=== PATIENT | female | born 1990 | race Caucasian/White ===

== ENCOUNTER 2018-01-22 13:56 | Emergency (ER) | payer SELFPAY ==
[2018-01-22 14:30] VITALS: BP 142/100; TEMP 97.9; O2SAT 98
[2018-01-22] MEDS: FLUCONAZOLE 100 MG TAB PO ONE (14:49)
--- NOTE | 2018-01-22 14:49 | ED.PDOC ---
History of Present Illness - General Chief Complaint: ENT Problem Stated Complaint: sore throat Time Seen by Provider: 01/22/18 14:15 Source: patient Exam Limitations: no limitations - History of Present Illness Initial Comments: the patient is a 27-year-old female presenting to the emergency room secondary to symptoms of pharyngitis that it been present for the last 2 weeks. No fevers. No runny nose. The patient is morbidly obese and likely does have sleep apnea which may be contributing. She does not think she has significant heartburn issues. She is not sexually active. No other significant symptoms.no history of diabetes. No history of any thyroid problems. Timing/Duration: 1 week, constant Severity: moderate Improving Factors: nothing Worsening Factors: nothing Associated Symptoms: denies symptoms Allergies/Adverse Reactions: Allergies NO KNOWN ALLERGY Allergy (Unverified 05/07/14 05:00) Home Medications: Ambulatory Orders Acetaminophen W/ Codeine [Tylenol W/ CODEINE #3] 1 ea PO Q6-8H PRN #15 Azithromycin Tab [Zithromax Tab] 250 mg PO QDAC #4 tab 05/07/14 Ciprofloxacin [Cipro] 500 mg PO BID #20 tab 10/12/14 Famotidine 20 mg PO DAILY #30 tab 01/22/18 Review of Systems - Review of Systems Constitutional: States: malaise EENTM: States: nose congestion - mild, throat pain Respiratory: States: no symptoms reported Cardiology: States: no symptoms reported Gastrointestinal/Abdominal: States: no symptoms reported Genitourinary: States: no symptoms reported Musculoskeletal: States: no symptoms reported Skin: States: no symptoms reported Neurological: States: no symptoms reported Endocrine: States: no symptoms reported All other Systems: No Change from Baseline Past Medical History (General) - Patient Medical History Hx Seizures: No Hx Stroke: No Hx Dementia: No Hx Asthma: No Hx of COPD: No Hx Cardiac Disorders: No Hx Congestive Heart Failure: No Hx Pacemaker: No Hx Hypertension: No Hx Thyroid Disease: No Hx Diabetes: No Hx Gastroesophageal Reflux: No Hx Renal Disease: No Hx Cancer: No Hx of HIV: No Hx Hepatitis C: Yes Hx MRSA: No Surgical History: other - Vaccination History Hx Tetanus, Diphtheria Vaccination: No Hx Influenza Vaccination: No Hx Pneumococcal Vaccination: No - Social History Hx Tobacco Use: Yes Hx Chewing Tobacco Use: No Hx Alcohol Use: No Hx Substance Use: No Hx Substance Use Treatment: No Hx Depression: No Hx Physical Abuse: No Hx Emotional Abuse: No Hx Suspected Abuse: No - Female History Hx Last Menstrual Period: 09/13/14 Patient : No Family Medical History - Family History Mother Family History: Unknown Living Status: Still Living Physical Exam - Physical Exam General Appearance: Alert, Comfortable, No apparent distress Eye Exam: bilateral normal Ears, Nose, Throat: hearing grossly normal, nasal congestion, other - 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 Neck: non-tender, full range of motion, supple, normal inspection, other - no evidence of any thyromegaly or tenderness to palpation from the outside. Respiratory: chest non-tender, lungs clear, normal breath sounds, no respiratory distress, no accessory muscle use Cardiovascular/Chest: normal peripheral pulses, regular rate, rhythm, no edema Peripheral Pulses: radial,right: 2+, radial,left: 2+, dorsalis pedis,right: 2+, dorsalis pedis,left: 2+ Gastrointestinal/Abdominal: non tender - obese, soft Rectal Exam: deferred Back Exam: normal inspection, no CVA tenderness Extremity: normal range of motion, non-tender, normal inspection, no pedal edema Neurologic: cotton expert II-XII nml as tested, alert, normal mood/affect, oriented x 3 Skin Exam: normal color Comments: Vital Signs - 24 hr 01/22/18 01/22/18 14:10 14:13 Temperature 97.9 F Pulse Rate [ 89 left brachial] Respiratory 20 20 Rate Blood Pressure 142/100 [left brachial] O2 Sat by Pulse 98 Oximetry Progress - Progress Progress: 01/22/18 14:50 the patient's a 27-year-old female presenting with symptoms of pharyngitis for the last couple of weeks. Source of this is not entirely certain. She has tested negative for strep throat. She does have a mildly elevated random glucose check of 166. She does need formal testing for diabetes as an outpatient. It is highly likely that the patient has significant sleep apnea that has gone untreated. She does need testing for this. It is possible the sore throat may be coming from the untreated sleep apnea. For this reason I do recommend that she sleep on something of an incline and use a humidifier at night to help bypass that problem until she gets evaluated and treated. She is receiving 1 dose of oral Diflucan for the possibility of a fungal pharyngitis, given the moderately elevated glucose. She is receiving 1 dose of oral prednisone to help reduce inflammation. I will go ahead and write her for one month of oral famotidine in case reflux is causing the pharyngitis at night. She does need to work on weight loss to help reduce blood sugar issues and sleep apnea issues as well. additionally the patient does need to have the polyp on her uvula removed and sent to pathology at some point in the near future. ER warnings were given. 01/22/18 14:53 Departure - Departure Clinical Impression: Pharyngitis Qualifiers: Pharyngitis/tonsillitis etiology: unspecified etiology Qualified Code(s): J02.9 - Acute pharyngitis, unspecified Disposition: Discharge to Home or Self Care Condition: Fair Departure Forms: ED Discharge - Pt. Copy, Patient Portal Self Enrollment Instructions: Sore Throat, Adult (DC) Diet: regular diet Activity: increase activity as tolerated Prescriptions: Famotidine 20 mg PO DAILY #30 tab Home Medications: Ambulatory Orders Acetaminophen W/ Codeine [Tylenol W/ CODEINE #3] 1 ea PO Q6-8H PRN #15 Azithromycin Tab [Zithromax Tab] 250 mg PO QDAC #4 tab 05/07/14 Ciprofloxacin [Cipro] 500 mg PO BID #20 tab 10/12/14 Famotidine 20 mg PO DAILY #30 tab 01/22/18 Additional Instructions: the patient's a 27-year-old female presenting with symptoms of pharyngitis for the last couple of weeks. Source of this is not entirely certain. She has tested negative for strep throat. She does have a mildly elevated random glucose check of 166. She does need formal testing for diabetes as an outpatient. It is highly likely that the patient has significant sleep apnea that has gone untreated. She does need testing for this. It is possible the sore throat may be coming from the untreated sleep apnea. For this reason I do recommend that she sleep on something of an incline and use a humidifier at night to help bypass that problem until she gets evaluated and treated. She is receiving 1 dose of oral Diflucan for the possibility of a fungal pharyngitis, given the moderately elevated glucose. She is receiving 1 dose of oral prednisone to help reduce inflammation. I will go ahead and write her for one month of oral famotidine in case reflux is causing the pharyngitis at night. She does need to work on weight loss to help reduce blood sugar issues and sleep apnea issues as well. additionally the patient does need to have the polyp on her uvula removed and sent to pathology at some point in the near future. ER warnings were given.
[2018-01-22] MEDS: predniSONE 20 MG TAB PO ONE (14:50)
== END 2018-01-22 15:00 | disposition home or self-care (01) ==
LOC: ER 13:56
DX: J02.9 Acute pharyngitis, unspecified (principal)
CPT/HCPCS: 36416; 82948; 87070; 87880; J7512

== ENCOUNTER 2019-01-01 18:43 | Emergency (ER) | payer SELFPAY ==
[2019-01-01 19:02] VITALS: O2SAT 100
[2019-01-01] MEDS: CEPHALEXIN MONOHYDRATE 500 MG CAP PO ONE (19:46)
--- NOTE | 2019-01-01 19:46 | ED.PDOC ---
History of Present Illness - General Chief Complaint: Bite: Animal/Insect/Human Stated Complaint: WASP STING TO LEFT LOWER LEG Time Seen by Provider: 01/01/19 19:25 Source: patient Exam Limitations: no limitations - History of Present Illness Initial Comments: Patient presents with left lower leg pain and redness for three days since being stung by a wasp. The area started out with a punctate wound but redness has been slowly expanding as well as the pain. No fevers. Denies allergies to insects or previous episodes. The patient denies diabetes mellitus. No other complaints. Timing/Duration: other - 3 days Severity: mild Improving Factors: rest Worsening Factors: movement Associated Symptoms: denies symptoms Allergies/Adverse Reactions: Allergies NO KNOWN ALLERGY Allergy (Unverified 01/22/18 14:53) Home Medications: Ambulatory Orders Cephalexin Monohydrate [Keflex] 250 mg PO Q6HRS #40 cap 01/01/19 Review of Systems - Review of Systems Constitutional: States: no symptoms reported EENTM: States: no symptoms reported Respiratory: States: no symptoms reported Cardiology: States: no symptoms reported Gastrointestinal/Abdominal: States: no symptoms reported Genitourinary: States: no symptoms reported Musculoskeletal: States: no symptoms reported Skin: States: see HPI Neurological: States: no symptoms reported Endocrine: States: no symptoms reported Hematologic/Lymphatic: States: no symptoms reported Past Medical History (General) - Patient Medical History Hx Seizures: No Hx Stroke: No Hx Dementia: No Hx Asthma: No Hx of COPD: No Hx Cardiac Disorders: No Hx Congestive Heart Failure: No Hx Pacemaker: No Hx Hypertension: No Hx Thyroid Disease: No Hx Diabetes: No Hx Gastroesophageal Reflux: No Hx Renal Disease: No Hx Cancer: No Hx of HIV: No Hx Hepatitis C: Yes Hx MRSA: No Surgical History: other - Vaccination History Hx Tetanus, Diphtheria Vaccination: No Hx Influenza Vaccination: No Hx Pneumococcal Vaccination: No - Social History Hx Tobacco Use: Yes Hx Chewing Tobacco Use: No Hx Alcohol Use: No Hx Substance Use: No Hx Substance Use Treatment: No Hx Depression: No Hx Physical Abuse: No Hx Emotional Abuse: No Hx Suspected Abuse: No - Female History Hx Last Menstrual Period: 09/13/14 Patient : No Family Medical History - Family History Mother Family History: Unknown Living Status: Still Living Physical Exam - Physical Exam General Appearance: Alert Respiratory: lungs clear, normal breath sounds Cardiovascular/Chest: normal peripheral pulses, regular rate, rhythm, no edema Peripheral Pulses: dorsalis pedis,right: 2+, dorsalis pedis,left: 2+, posterior tibialis,right: 2+, posterior tibialis,left: 2+ Gastrointestinal/Abdominal: normal bowel sounds, non tender, soft Extremity: other - 20 cm x 12 cm area of blanching erythema on the left anterolateral lower leg. Mild TTP. There is a central punctate wound. No exudates. Progress - Progress Progress: 01/01/19 19:47 Line drawn around the erythmatous region with a black permanent marker. Patient given Keflex 1000 mg po x one in the E.D. and RX for Keflex 250 mg po qid x 10 days. She does not have a family doctor. She was told to return to the E.R. if the redness continues to extend beyond the marked edges or if the redness and pain have not resolved in 7-10 days. Also return for fever. Care instructions given. E.R. warnings given. Questions were elicited and answered. Patient voiced understanding and agreement with the plan. 01/01/19 19:50 Laboratory Tests 01/01/19 01/01/19 19:00 19:00 WBC 8.4 RBC 4.92 Hgb 15.2 Hct 44.4 MCV 90.2 MCH 30.8 MCHC 34.2 RDW 13.3 Plt Count 213 MPV 10.0 Absolute Neuts (auto) 5.40 Absolute Lymphs (auto) 1.90 Absolute Monos (auto) 0.60 Absolute Eos (auto) 0.40 Absolute Basos (auto) 0.00 Neutrophils % 65.2 Lymphocytes % 22.5 Monocytes % 7.2 Eosinophils % 4.6 Basophils % 0.5 Sodium 135 Potassium 3.8 Chloride 105 Carbon Dioxide 23 Anion Gap 10.8 L BUN 11 Creatinine 0.76 BUN/Creatinine Ratio 14.5 Random Glucose 126 H Serum Osmolality 271.0 L Calcium 8.7 No signs of systemic infection. Patient is afebrile. Departure - Departure Clinical Impression: Insect bites, Cellulitis Disposition: Discharge to Home or Self Care Condition: Fair Departure Forms: ED Discharge - Pt. Copy, Patient Portal Self Enrollment Instructions: DI for Insect Bites and Stings, Cellulitis and Erysipelas (Skin Infections) Diet: resume usual diet Activity: increase activity as tolerated Prescriptions: Cephalexin Monohydrate [Keflex] 250 mg PO Q6HRS #40 cap Home Medications: Ambulatory Orders Cephalexin Monohydrate [Keflex] 250 mg PO Q6HRS #40 cap 01/01/19 Additional Instructions: Take medications as directed. Return to the E.R. if redness continues to extend beyond the marker edges. Return to the E.R. if the redness has not resolved in 7-10 days or for a temperature of 100.4 or above. Have a family doctor check the wound in 4-7 days. Also return for increasing pain or pus.
[2019-01-01 20:04] VITALS: BP 119/89; TEMP 98.4
== END 2019-01-01 20:04 | disposition home or self-care (01) ==
LOC: ER 18:43
DX: T63.461A Toxic effect of venom of wasps, accidental (unintentional), initial encounter (principal); L03.116 Cellulitis of left lower limb; Z86.19 Personal history of other infectious and parasitic diseases; Z87.891 Personal history of nicotine dependence